=== PATIENT | female | born 1995 | race Caucasian/White ===

== ENCOUNTER 2019-10-05 02:45 | Inpatient (IN) ==
[2019-10-05] MEDS ORDERED: PENICILLIN G POTASSIUM 6 MU in DEXTROSE 5% 250 ML IV STA (03:31)
[2019-10-05] MEDS: LACTATED RINGER'S 1,000 ML IV PRN ×2 (03:48→08:04)
[2019-10-05 03:59] LABS: Hematocrit (blood only) 41.6 % (37-47); Hemoglobin 14.5 g/dL (12.0-16.0); Mean Corpuscular Hemoglobin 31.1 pg (25-34); Mean Corpuscular Volume 89.3 fL (80-100); Platelet Count 219 K/uL (130-400); RDW Coefficient of Variation 13.3 % (11.5-14.5); RDW Standard Deviation 43.2 fL (36.4-46.3); Red Blood Count 4.66 M/uL (4.2-5.4); White Blood Count 18.61 K/uL (4.8-10.8)
[2019-10-05 04:13] LABS: Mean Corpuscular Hgb Conc 34.9 g/dL (32-36)
--- NOTE | 2019-10-05 05:53 | History & Physical Report ---
Date of Service October 05, 2019 Assessment & Plan (1) : Hortencia is a 23 y/o female currently at 40-1/7 WGA with an BELÉN 10/04/19 as determined by LMP who is here with her for active labor and anticipated . - Demonstrating regular contractions beginning around midnight and SROM earlier this morning; category I tracing with good FHR variability. - Anticipate - GBS+ -- will proceed with intrapartum PCN - pt requesting an epidural at this time -- anesthesia to be consulted Blood Type: AB+ GBS: positive Rubella: immune History of Present Illness Primary Care Provider: Crystal Petty DO Hortencia is a 23 y/o female currently at 40-1/7 WGA with an BELÉN 10/04/19 as determined by LMP who is here for a labor assessment in the setting of regular contractions beginning around midnight last night. Her has been uncomplicated. Endorses regular contractions; + movement; notes fluid loss earlier this AM; denies bloody show External FHT and external uterine monitors used; Category I tracing; +FHT variability. Had regular appointments with OB. Labs: (02/18/20) Blood type: AB+ Antibody screen: neg H.5 (today) Hct: 41.6 (today) WBC: 18.6 (today) Plt: 219 (today) Rubella: immune VDRL/RPR: neg Gonorrhea: neg Chlamydia: neg HIV: neg HbSAg: neg GBS: positive Other screens: cff-DNA (03/19/19): Low Risk Allergies Allergy/AdvReac Type Severity Reaction Status Date / Time adhesive tape AdvReac Rash Verified 10/05/19 03:05 Home Medications Home Medications Medication Instructions Recorded Confirmed Type prenat.vits,rossana,par-wdms-ezlvk 1 tab PO DAILY 02/20/19 10/05/19 History cetirizine [Zyrtec] 10 mg PO DAILY 10/05/19 10/05/19 History Patient History Medical History Asthma Depression Encounter for anatomic survey Fibroadenoma Nausea and vomiting during Varicella vaccine Surgical History [place] teeth removed Family History Mother Endometriosis Family/Other Colitis Denies family history of Ovarian cancer Breast cancer Social History (Updated 02/20/19 @ 14:17 by Marlys Reynoso) Smoking Status: Never smoker Hx Alcohol Use: No Hx Substance Use: No Preferred Language: [place] Islander Communication Ability: Effective Beliefs That Will Affect Care: None marital status: marital status details: Michi Hsu (23) [phone] Current Living Situation: Spouse Current Living Situation Comment: house with current occupational status: employed 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 Endorses distress 2/2 regular contractions. Cardiac: Regular rate and rhythm, no murmurs/rubs/gallops. Respiratory: Clear to auscultation bilaterally a/p, no wheezes/rales/rhonchi. No increased work of breathing. Symmetrical chest rise. No respiratory distress. Pelvic: Dilation 6cm; Effacement 90%; Station 0 per Bang An RN Lower Extremities: No lower extremity edema or swelling. No deep calf pain. Marilyn's negative bilaterally Results & Data Vital Signs (Past 12 Hours) Vital Signs Temp Pulse Resp BP 10/05/19 05:11 68 133/96 10/05/19 05:10 36.9 C 20 10/05/19 04:02 71 142/97 H 10/05/19 04:00 18 10/05/19 03:27 77 148/94 H 10/05/19 03:17 75 139/93 10/05/19 03:06 36.8 C 18 10/05/19 03:01 36.8 C 67 18 139/93 Resident Activity Tracking Resident Involvement: Resident Care Provided Care Provided: Adult Hospital Medicine and OB Delivery
[2019-10-05] MEDS ORDERED: BUPIVACAINE 0.25% 30 ML VIAL ONE (06:55)
[2019-10-05] MEDS ORDERED: ePHEDrine sulfate 50 MG/ML AMP ONE (06:55)
[2019-10-05] MEDS ORDERED: fentaNYL 2MCG/ML ROPIV 1.25MG/ML 100 ML BAG EPI ONE (06:56)
[2019-10-05] MEDS ORDERED: fentaNYL citrate 100 MCG/2 ML VIAL ONE (06:56)
--- NOTE | 2019-10-05 07:16 | Anesthesiology Consultation ---
Date of Service October 05, 2019 Assessment & Plan (1) Encounter for pre-operative examination: Chart Review Chart Review: Acceptable Risk for Labor Epidural Consults Requested none ASA ASA2 Proposed Anesthesia Anesthesia Type: Labor Epidural Risk / Benefits Reviewed With: PT / POA / Parent / Guardian, Accepts Plan and Informed Consent Obtained History Height/Weight Height: 5 ft 6 in Weight: 87.09 kg Allergies Allergy/AdvReac Type Severity Reaction Status Date / Time adhesive tape AdvReac Rash Verified 10/05/19 03:05 Medications Home Medications Medication Instructions Recorded Confirmed Last Taken prenat.vits,rossana,eua-jyqj-qiwdl 1 tab PO DAILY 02/20/19 10/05/19 10/04/19 cetirizine [Zyrtec] 10 mg PO DAILY 10/05/19 10/05/19 10/04/19 Active Medications Generic Name Dose Route Start Last Admin Trade Name Freq PRN Reason Stop Dose Admin Lactated Ringer's 1,000 mls @ 125 mls/hr 10/05/19 03:31 10/05/19 04:18 Lr IV 10/07/19 03:30 125 mls/hr .Q8H PRN Infusion L&D Protocol Protocol Past Medical History Medical History Asthma Depression Encounter for anatomic survey Fibroadenoma Nausea and vomiting during Varicella vaccine Exercise / Class Metabolic Activity II 4-5 Yardwork/Stairs/Walk up hill Past Family History Family History Mother Endometriosis Family/Other Colitis Denies family history of Ovarian cancer Breast cancer Past Surgical History Surgical History [place] teeth removed Past Anesthesia History No Hx of Anesthesia Complications and No Family Hx of Anesthesia Complications History of PONV No Hx of PONV and No Hx of Motion Sickness Social History Smoking Status: Never smoker Hx Alcohol Use: No Hx Substance Use: No Physical Exam Vital Signs Last Vital Signs Temp 98.4 F 10/05/19 05:10 Pulse 72 10/05/19 07:13 Resp 20 10/05/19 06:00 BP 133/85 10/05/19 07:08 Pulse Ox 100 10/05/19 07:13 ENMT Mouth: no dentition abnormality Thyromental Distance: > or= 3.5 Finger Breadths Mallampati Class: II Neck normal visual inspection Respiratory normal respiratory effort Auscultation: lungs clear to auscultation bilaterally Cardiovascular Rate/Rhythm: regular rate and regular rhythm Testing Laboratory Results 10/05/19 03:42
[2019-10-05] MEDS ORDERED: fentaNYL 2MCG/ML ROPIV 1.25MG/ML 100 ML BAG EPI PRN (07:39)
[2019-10-05] MEDS ORDERED: ePHEDrine sulfate 50 MG/ML AMP IV PRN (07:39)
[2019-10-05] MEDS ORDERED: DiphenhydrAMINE HCL 50 MG/ML VIAL IV PRN (07:39)
[2019-10-05] MEDS ORDERED: NALOXONE HCL 1 MG in SODIUM CHLORIDE 0.9% 1000ML 1,000 ML IV PRN (07:39)
[2019-10-05] MEDS ORDERED: ONDANSETRON INJ 2 MG/ML 2 ML VIAL IV PRN (07:39)
[2019-10-05] MEDS ORDERED: NALOXONE HCL 0.4 MG/1 ML VIAL/CARP IV PRN (07:39)
[2019-10-05] MEDS: PENICILLIN G POTASSIUM 3 MU in DEXTROSE 5% 100 ML IV PRN ×3 (08:15→16:27)
[2019-10-05 08:25] LABS: Albumin Level 2.8 gm/dl (3.4-5.0); BUN Creatinine Ratio 6.3 (10-20); Calcium 8.5 mg/dl (8.5-10.1); Creatinine Clr Calc Pharmacy 104.6 ml/min; Est GFR (African American) 100.4; Est GFR (Non-African American) 86.6; Potassium 3.3 mmol/L (3.5-5.1)
[2019-10-05 08:28] LABS: Albumin Globulin Ratio 0.8 (0.9-2); Bilirubin,Total 0.5 mg/dl (0.2-1); Globulin 3.5 gm/dl (2.5-4.0); Total Protein 6.3 gm/dl (6.4-8.2)
--- NOTE | 2019-10-05 14:50 | Labor Progress Brief Note ---
Date of Service October 05, 2019 Subjective Patient began pushing with RN around 1:15p with complete cervical dilation. I checked on pushing effort at 2pm, patient still had a forebag of amniotic membranes, this was ruptured with amnihook for light meconium stained fluid. Recheck of pushing effort at 2:45, baby is now at 1+ station, good pushing effort however patient with significant right hip pain. New epidural bag started. FHT Cat 1, toco Q 2 Assessment & Plan Admission and Anticipated Discharge Date Admission Date: October 05, 2019 Results & Data ([facility]) Vital Signs (Past 12 Hours) Vital Signs Temp Pulse Resp BP Pulse Ox 10/05/19 14:43 74 97 10/05/19 14:38 72 81 L 10/05/19 14:34 68 135/83 10/05/19 14:33 74 98 10/05/19 14:28 80 96 10/05/19 14:23 73 99 10/05/19 14:18 64 97 10/05/19 14:17 66 132/81 10/05/19 14:13 73 98 10/05/19 14:08 63 97 10/05/19 14:04 65 130/75 10/05/19 14:03 66 95 10/05/19 14:00 37.1 C 20 10/05/19 13:58 88 91 10/05/19 13:53 78 99 10/05/19 13:48 68 127/85 95 10/05/19 13:47 71 93 10/05/19 13:43 82 97 10/05/19 13:39 68 90 10/05/19 13:38 69 98 10/05/19 13:33 64 98 10/05/19 13:32 69 132/58 L 10/05/19 13:30 36.6 C 18 10/05/19 13:28 84 98 10/05/19 13:23 66 99 10/05/19 13:19 75 124/74 10/05/19 13:18 86 99 10/05/19 13:17 96 H 92 10/05/19 13:13 71 99 10/05/19 13:08 80 100 10/05/19 13:03 73 99 10/05/19 13:02 69 133/79 10/05/19 12:58 76 100 10/05/19 12:53 69 100 10/05/19 12:48 77 136/81 99 10/05/19 12:43 72 99 10/05/19 12:38 69 98 10/05/19 12:33 65 99 10/05/19 12:32 63 138/83 10/05/19 12:28 69 100 10/05/19 12:23 85 100 10/05/19 12:18 76 100 10/05/19 12:17 73 142/86 H 10/05/19 12:13 75 100 10/05/19 12:08 80 99 10/05/19 12:03 73 100 10/05/19 12:02 70 145/91 H 10/05/19 11:58 68 100 10/05/19 11:53 71 97 10/05/19 11:48 66 100 10/05/19 11:47 75 138/87 10/05/19 11:43 68 100 10/05/19 11:38 74 100 10/05/19 11:33 70 100 10/05/19 11:32 65 138/79 10/05/19 11:28 70 100 10/05/19 11:23 70 99 10/05/19 11:18 74 134/75 99 10/05/19 11:13 70 98 10/05/19 11:08 68 98 10/05/19 11:03 70 128/78 98 10/05/19 10:58 90 98 10/05/19 10:53 75 99 10/05/19 10:48 75 99 10/05/19 10:47 73 128/87 10/05/19 10:43 74 99 10/05/19 10:39 36.6 C 18 10/05/19 10:38 85 98 10/05/19 10:33 74 99 10/05/19 10:32 73 125/84 10/05/19 10:28 76 99 10/05/19 10:23 78 99 10/05/19 10:18 75 99 10/05/19 10:16 77 130/81 10/05/19 10:13 79 99 10/05/19 10:08 76 98 10/05/19 10:03 75 124/77 100 10/05/19 09:58 75 100 10/05/19 09:53 77 98 10/05/19 09:48 71 100 10/05/19 09:47 77 130/87 10/05/19 09:43 79 99 10/05/19 09:38 69 99 10/05/19 09:33 79 99 10/05/19 09:28 67 99 10/05/19 09:23 72 100 10/05/19 09:18 75 100 10/05/19 09:17 74 126/77 10/05/19 09:13 76 100 10/05/19 09:08 72 100 10/05/19 09:03 78 116/83 97 10/05/19 09:00 36.7 C 18 10/05/19 08:58 69 100 10/05/19 08:53 68 100 10/05/19 08:48 71 129/76 100 10/05/19 08:43 71 100 10/05/19 08:38 69 100 10/05/19 08:33 67 133/76 100 10/05/19 08:28 71 100 10/05/19 08:23 79 100 10/05/19 08:18 63 100 10/05/19 08:17 67 128/72 10/05/19 08:13 71 99 10/05/19 08:08 63 100 10/05/19 08:03 65 98 10/05/19 08:02 66 128/74 10/05/19 07:58 66 99 10/05/19 07:53 69 99 10/05/19 07:48 69 98 10/05/19 07:46 71 126/70 10/05/19 07:44 67 128/69 10/05/19 07:43 73 99 10/05/19 07:42 70 127/67 10/05/19 07:40 73 125/66 10/05/19 07:38 72 122/63 100 10/05/19 07:34 76 136/76 10/05/19 07:33 86 100 10/05/19 07:29 73 143/90 H 10/05/19 07:28 75 100 10/05/19 07:24 83 148/89 H 10/05/19 07:23 80 79 L 10/05/19 07:18 79 100 10/05/19 07:17 83 91 10/05/19 07:13 72 100 10/05/19 07:08 86 133/85 100 10/05/19 07:02 75 137/86 10/05/19 07:00 36.6 C 22 10/05/19 06:00 20 10/05/19 05:11 68 133/96 10/05/19 05:10 36.9 C 20 10/05/19 04:02 71 142/97 H 10/05/19 04:00 18 10/05/19 03:27 77 148/94 H 10/05/19 03:17 75 139/93 10/05/19 03:06 36.8 C 18 10/05/19 03:01 36.8 C 67 18 139/93 Coding Level of Care Code None
[2019-10-05] MEDS: OXYTOCIN 30 UNITS/500 ML BAG IV PRN ×2 (16:04→18:45)
[2019-10-05] MEDS ORDERED: CARBOPROST TROMETHAMINE 250 MCG/ML AMPUL ONE (18:08)
[2019-10-05] MEDS ORDERED: METHYLERGONOVINE MALEATE 0.2 MG/ML AMP ONE (18:10)
--- NOTE | 2019-10-05 19:12 | Anesthesia Procedure Note ---
Date of Service October 05, 2019 Anesthesia Post Epidural Note Vital Signs Vital Signs: Temp Pulse Resp BP Pulse Ox 99.7 F H 65 18 160/93 H 100 10/05/19 17:00 10/05/19 19:05 10/05/19 17:00 10/05/19 19:05 10/05/19 18:34 Pain Intensity Right Abdomen: Pain Intensity: 3 Notes Mental Status: alert / awake / arousable and participated in evaluation Nausea / Vomiting: adequately controlled Pain: adequately controlled Airway Patency, RR, SpO2: stable & adequate BP & HR: stable & adequate Hydration State: stable & adequate Neuraxial Anesthesia: was administered and sensory block is resolving Anesthetic Complications: no major complications apparent and Pt Satisfied with anesthetic care Epidural: Removed without complications and With tip intact
--- NOTE | 2019-10-05 19:14 | Delivery Summary ---
Vaginal Delivery Summary Date of Service October 05, 2019 Vaginal Delivery Summary Vaginal Delivery Summary: Pre-delivery diagnoses: 23yo @ 40 1/7, spontaneous labor, GBS+ Post-delivery diagnoses: same, mild shoulder dystocia, 4th degree perineal laceration Procedure: vacuum-assisted vaginal delivery, repair of 4th degree perineal laceration Surgeon: Venice Underwood DO Complications: none Findings: Viable female . Apgars: 4/8. Weight pending, please see nursery records. Estimated blood loss: 400ml Description of delivery: The patient progressed to complete with epidural anesthesia. She then began to push. After approx 45min of pushing, I checked on her progress, and found forebag of amniotic membranes - AROM for meconium- stained fluid. She then pushed for 4 hours. She was continuing to make progress with station, slowly. She felt like she could no longer push at all, and begain to ask for help. I counseled her on use of vacuum, and she consented. Midline episiotomy cut. FHT Cat 1. The vacuum was placed at 3cm beyond the flexion point of head. Kiwi vacuum was used to help guide the head from 2+ station to 3+ station. 3 popoffs. Since the station improved, and Cat 1 FHT, allowed patient to continue pushing. She then spontaneously vaginally delivered a viable from the cephalic presentation. The head delivered in KULDIP position. Nuchal cord x 1 easily reduced. Mild shoulder dystocia, as anterior shoulder did not immediately delivery. The anterior shoulder delivered, and posterior shoulder was delayed. The anterior arm was delivered by sweeping medially along the body. This was followed by the posterior shoulder, followed by the body. The baby was placed on mother's abdomen and the cord was immediately doubly clamped and cut. The baby was immediately handed off to the waiting suggestion clerk. A segment was retained for cord gases. Cord blood was obtained. The placenta was delivered spontaneously intact with a 3-vessel cord. The uterus and vagina were swept of clots and debris. IV pitocin was given. The uterus was still atonic - the bladder was drained. Methergine and hemabate were given, and with uterine massage, the fundus became firm. The cervix, vagina, and perineum were inspected. A 4th degree perineal laceration was discovered. It was infused with 1% lidocaine for better anesthetic. This was closed in standard fashion. The rectal mucosa was reapproximated using 3-0 chromic in a running stitch, taking care to avoid sutures in the rectum itself. Then, the anal sphincter muscle was grasped with Allis clamps, and this was brought together with 4 x [id number] sutures of the 3-0 Chromic, incorporating the muscle sheath and the muscle itself. The remaining 2nd degree laceration was reapproximated in standard fashion with 3-0 Vicryl. Rectal exam at the conclusion of repair revealed fully reapproximated rectum, with no sutures in rectum. The anal sphincter muscle was well reapproximated. Excellent hemostasis was observed. The mother and baby are recovering in stable and good condition in the room. Sponge, needle and instrument counts were correct x 2. I discussed the above with patient and FOB in a post-delivery debrief. DO RANDY Suárez [facility] Vaginal Delivery Charge Vaginal Delivery Codes: 15023 global code for the antepartum, delivery, and post-
[2019-10-05] MEDS ORDERED: SUPERCREAM 0.870% 15 GM JAR EXT PRN (19:16)
[2019-10-05] MEDS ORDERED: ACETAMINOPHEN 325 MG TAB PO PRN (19:16)
[2019-10-05] MEDS ORDERED: bisacodyL 10 MG SUPP PR PRN (19:16)
[2019-10-05] MEDS ORDERED: METHYLERGONOVINE MALEATE 0.2 MG/ML AMP IM ONE (19:16)
[2019-10-05] MEDS ORDERED: DIPHTHERIA/TETANUS/PERTUSSIS 0.5 ML SYR/VIAL IM ONE (19:16)
[2019-10-05] MEDS ORDERED: BENZOCAINE 20% AER SPR 82.5 GM CAN EXT PRN (19:16)
[2019-10-05] MEDS ORDERED: CARBOPROST TROMETHAMINE 250 MCG/ML AMPUL IM ONE (19:16)
[2019-10-05] MEDS ORDERED: OXYTOCIN 30 UNITS/500 ML BAG IV PRN (19:16)
[2019-10-05] MEDS ORDERED: HYDROCORTISONE ACETATE 25 MG SUPP PR PRN (19:16)
[2019-10-05] MEDS ORDERED: IBUPROFEN 600 MG TAB PO ONE (19:19)
[2019-10-05 19:39] LABS: Base Excess Cord Arterial Bld -5.6 mEq/L (-9-1.8); Base Excess Cord Venous Blood -5.1 mEq/L (-7.7-1.9); CO2 Cord Arterial Blood 40 mmHg (39.1-73.5); Cord Venous Blood HCO3 19 mmol/L (18.4-26.8); Cord Venous Blood PCO2 33 mmHg (30.4-57.2); Cord Venous Blood PO2 30 mmHg (14.1-43.3); Cord Venous Blood pH 7.38 (7.20-7.44); HCO3 Cord Arterial Blood 20 mmol/L (19.7-28.5); Oxygen Sat Cord Arterial Blood < 60.0 % (<60); PO2 Cord Arterial Blood 23 mmHg (4.1-31.7); pH Cord Arterial Blood 7.32 (7.1-7.38)
[2019-10-05] MEDS: OXYCODONE/ACETAMINOPHEN 5mg/325mg TAB PO PRN (20:52)
[2019-10-05] MEDS ORDERED: DOCUSATE SODIUM 100 MG CAP PO SCH (21:00)
[2019-10-05] MEDS: IBUPROFEN 600 MG TAB PO PRN (23:10)
[2019-10-06] MEDS: OXYCODONE/ACETAMINOPHEN 5mg/325mg TAB PO PRN ×3 (01:34→09:28)
[2019-10-06 02:02] VITALS: O2SAT 97
[2019-10-06] MEDS: IBUPROFEN 600 MG TAB PO PRN ×4 (05:54→20:20)
--- NOTE | 2019-10-06 06:47 | Obstetrical Progress Note ---
Date of Service <Juliano Ruiz MD - Last Filed: 10/06/19 07:45> October 06, 2019 Assessment & Plan <Juliano Ruiz MD - Last Filed: 10/06/19 07:45> (1) Vacuum-assisted vaginal delivery: Hortencia is a 23 y/o female who is now PPD #1 following VAVD at 40-1/7 weeks. Her delivery is also significant for a Grade IV vaginal laceration - Feels well today. Eating well, voiding well, ambulating well. - Pain well controlled with ibuprofen 600mg Q4H PRN - Regular stool softeners (scheduled) in setting of grade IV lac - Routine PPD care -- OOB, ambulation, diet as tolerated Subjective <Juliano Ruiz MD - Last Filed: 10/06/19 07:45> Hortencia is a 23 y/o female who is now PPD #1 following VAVD at 40-1/7 weeks. Reports feeling well overall this morning. Some abdominal cramping & 3/10 pain well managed on analgesics. Voiding without difficulty. Tolerating meals overnight and able to ambulate some. Is passing gas but not yet bowel movements. Some persistent lochia with some improvement this morning. Breast feeding without difficulty Review of Systems Denies fever, chills, sweats Denies shortness of breath, difficulty breathing, chest pain, palpitations, chest pressure. Denies breast pain. Denies dysuria. Denies headache. Physical Exam <Juliano Ruiz MD - Last Filed: 10/06/19 07:45> General: Alert, oriented. No acute distress. Cardiac: Regular rate and rhythm, no murmurs/rubs/gallops. Respiratory: Clear to auscultation bilaterally a/p, no wheezes/rales/rhonchi. No increased work of breathing. Symmetrical chest rise. No respiratory distress. Abdomen: Soft, nontender, nondistended. Bowel sounds present. Uterus: Uterine fundus firm, palpable at level of umbilicus. Lower Extremities: No lower extremity edema or swelling. No deep calf pain. Marilyn's negative bilaterally. Results & Data <Juliano Ruiz MD - Last Filed: 10/06/19 07:45> Vital Signs (Past 12 Hours) Vital Signs Temp Pulse Pulse Resp BP BP Pulse Ox 10/06/19 03:05 36.4 C L 85 16 134/87 97 10/06/19 01:35 36.6 C 83 16 121/78 97 10/05/19 22:15 36.9 C 80 16 137/86 96 10/05/19 20:47 36.7 C 63 18 142/86 H 10/05/19 20:32 66 18 141/85 H 10/05/19 20:17 60 16 157/95 H 10/05/19 20:10 60 16 157/87 H 10/05/19 19:42 63 18 145/91 H 10/05/19 19:17 57 L 16 172/97 H 10/05/19 19:05 36.7 C 65 16 160/93 H 10/05/19 19:02 62 16 173/102 H 10/05/19 18:47 75 16 151/92 H 10/05/19 18:45 37.2 C 18 <Venice Underwood DO - Last Filed: 10/06/19 08:33> Co-Signing Physician Notes Resident Physician Supervision Note: I was present with Dr. Ruiz during the history and exam. I discussed the case with the resident and agree with the findings and plan as documented in the note. Any exceptions or clarifications are listed here: PPD#1 doing well. Continue stool softeners. Documented By: Venice Underwood DO Resident Activity Tracking <Juliano Ruiz MD - Last Filed: 10/06/19 07:45> Resident Involvement: Resident Care Provided Care Provided: Adult Hospital Medicine and OB Delivery
[2019-10-06 07:36] LABS: Hematocrit (blood only) 33.8 % (37-47); Hemoglobin 11.6 g/dL (12.0-16.0)
[2019-10-06] MEDS ORDERED: NON-FORMULARY MEDICATION (Prenat.Vits,Cal,Min-Iron-Folic 1 TAB) PO SCH (09:00)
[2019-10-06] MEDS: CETIRIZINE HCL 10 MG TABLET PO SCH (09:24)
[2019-10-06] MEDS: PRENATAL VITAMIN 1 TAB PO SCH (09:25)
[2019-10-06] MEDS: DOCUSATE SODIUM 100 MG CAP PO SCH ×2 (09:25→20:20)
[2019-10-06] MEDS ORDERED: bisacodyL 5 MG TABEC PO SCH (20:00)
[2019-10-07] MEDS: IBUPROFEN 600 MG TAB PO PRN ×4 (00:47→13:21)
--- NOTE | 2019-10-07 05:37 | Obstetrical Progress Note ---
Date of Service <Juliano Ruiz MD - Last Filed: 10/07/19 06:40> October 07, 2019 Assessment & Plan <Juliano Ruiz MD - Last Filed: 10/07/19 06:40> (1) Vacuum-assisted vaginal delivery: Hortencia is a 23 y/o female who is now PPD #2 following VAVD at 40-1/7 weeks. Her delivery is also significant for a Grade IV vaginal laceration - Feels well today. Eating well, voiding well, ambulating well. - Pain well controlled with ibuprofen 600mg Q4H PRN - Regular stool softeners (scheduled) in setting of grade IV lac - Routine PPD care -- OOB, ambulation, diet as tolerated - anticipate d/c today pending peds clearance Subjective <Juliano Ruiz MD - Last Filed: 10/07/19 06:40> Hortencia is a 23 y/o female who is now PPD #2 following VAVD at 40-1/7 weeks. Reports feeling well overall this morning. Some abdominal cramping and perineal discomfort in setting of grade IV vaginal laceration; reports pain around her bottom when moving but feels that it is well managed on NSAID analgesics. Voiding without difficulty. Tolerating meals overnight and able to ambulate some. Continues to pass gas but not yet bowel movement; on regular and scheduled bowel prep. Some persistent lochia with some improvement this morning. Breast feeding without difficulty Review of Systems Denies fever, chills, sweats Denies shortness of breath, difficulty breathing, chest pain, palpitations, chest pressure. Denies breast pain. Denies dysuria. Denies headache. Physical Exam <Juliano Ruiz MD - Last Filed: 10/07/19 06:40> General: Alert, oriented. No acute distress. Cardiac: Regular rate and rhythm, no murmurs/rubs/gallops. Respiratory: Clear to auscultation bilaterally a/p, no wheezes/rales/rhonchi. No increased work of breathing. Symmetrical chest rise. No respiratory distress. Abdomen: Soft, nontender, nondistended. Bowel sounds present. Uterus: Uterine fundus firm, palpable 1 cm below umbilicus. Lower Extremities: No lower extremity edema or swelling. No deep calf pain. Marilyn's negative bilaterally. Results & Data <Juliano Ruiz MD - Last Filed: 10/07/19 06:40> Vital Signs (Past 12 Hours) Vital Signs Temp Pulse Resp BP Pulse Ox 10/06/19 23:30 36.7 C 92 H 14 123/30 L 97 10/06/19 19:25 36.8 C 99 H 16 125/79 97 <Nadine Cherry MD, FACOG - Last Filed: 10/07/19 07:26> Co-Signing Physician Notes Resident Physician Supervision Note: I interviewed and examined the patient. Discussed with Dr. Ruiz and agree with findings and plan as documented in the note. Any exceptions or clarifications are listed here: [None] Documented By: Nadine Cherry MD, FACOG Resident Activity Tracking <Juliano Ruiz MD - Last Filed: 10/07/19 06:40> Resident Involvement: Resident Care Provided Care Provided: Adult Hospital Medicine and OB Delivery
[2019-10-07] MEDS: PRENATAL VITAMIN 1 TAB PO SCH (08:32)
[2019-10-07] MEDS: CETIRIZINE HCL 10 MG TABLET PO SCH (08:32)
[2019-10-07] MEDS: DOCUSATE SODIUM 100 MG CAP PO SCH (08:33)
[2019-10-07 10:11] VITALS: BP 144/69; PULSE 83; TEMP 97.3
== END 2019-10-07 18:06 | disposition home or self-care (01) | DRG 768 ==
LOC: OPB 02:45 → 4S1 02:48 → 4S2 21:55

== ENCOUNTER 2021-06-12 05:45 | Inpatient (IN) ==
[2021-06-12] MEDS ORDERED: LACTATED RINGER'S 1,000 ML IV PRN (06:31)
[2021-06-12] MEDS ORDERED: OXYTOCIN 30 UNITS/500 ML BAG IV PRN ×2 (06:31→12:41)
[2021-06-12] MEDS ORDERED: PENICILLIN G POTASSIUM 6 MU in DEXTROSE 5% 250 ML IV ONE (06:45)
[2021-06-12 06:57] LABS: Hematocrit (blood only) 42.5 % (37-47); Mean Corpuscular Hemoglobin 31.4 pg (25-34); Mean Corpuscular Hgb Conc 35.3 g/dL (32-36); Mean Corpuscular Volume 88.9 fL (80-100); Mean Platelet Volume 10.1 fL (7.4-10.4); Platelet Count 217 K/uL (130-400); RDW Coefficient of Variation 13.1 % (11.5-14.5); RDW Standard Deviation 42.3 fL (36.4-46.3); Red Blood Count 4.78 M/uL (4.2-5.4)
--- NOTE | 2021-06-12 07:33 | History & Physical Report ---
Date of Service June 12, 2021 Assessment & Plan (1) Active labor at term: (2) Group beta Strep positive: Plan: pt has been admitted. gbs pos, plan pcn. fhts categ 1. Admission and Anticipated Discharge Date Admission Date: June 12, 2021 History of Present Illness Chief Complaint: leaking since 330 am today Primary Care Provider: Crystal Petty, DO 25yo at 37+wks ega presents to L&D with leaking fluid, clear and intermittent contractions. On arrival gross srom and regular ctx with cx 4cm. GBS pos. No bleeding. +FM. PNC uncomplicated PNL rh pos, ri, gbs neg OBH: x 1 Allergies Allergy/AdvReac Type Severity Reaction Status Date / Time adhesive tape AdvReac Mild Rash Verified 06/12/21 06:38 Home Medications Medication Instructions Recorded Confirmed Type prenat.vits,rossana,hnv-mlwl-mfgdc 1 tab PO DAILY 02/20/19 06/09/21 History cetirizine 10 mg capsule (Zyrtec) 10 mg PO DAILY 10/05/19 06/09/21 History diphenhydramine HCl 50 mg capsule 50 mg PO HS PRN cap 05/05/21 06/09/21 History ([facility]) Patient History Medical History (Updated 06/12/21 @ 07:42 by Atiya Gaxiola MD, FACOG) Asthma Depression Encounter for anatomic survey Fibroadenoma Nausea and vomiting during Varicella vaccine Surgical History [place] teeth removed Family History Mother Endometriosis Family/Other Colitis Denies family history of Ovarian cancer Breast cancer Social History (Updated 11/15/20 @ 09:53 by Barbra Garibay) Smoking Status: Never smoker Hx Alcohol Use: No Hx Substance Use: No Preferred Language: Burkin[place] Communication Ability: Effective Beliefs That Will Affect Care: None marital status: marital status details: Michi Hsu (24) [phone] Current Living Situation: Spouse Current Living Situation Comment: lives with spouse and child, 1 dog, 1 cat, spouse to change litter. 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 Feels Safe at Home: Yes Assistive Devices: None Review of Systems as per Subjective / HPI Physical Exam Constitutional: WD/WN, vitals as above Respiratory: normal respiratory effort, lungs clear to auscultation Cardiovascular: Rate/Rhythm: regular rate and regular rhythm Gastrointestinal (Abdomen): soft gravid nt efw 6-7# Musculoskeletal: no edema nontender calves Neurologic: grossly normal Psychiatric: A+Ox3, euthymic affect Genitourinary: Manual OB Exam: + cervical dilation 4 cm OB Exam Monitor Tracing: + external FHT monitor used, + external uterine monitor used (q3), + category I and + normal FHT variability Results & Data ([facility]) Vital Signs (Past 12 Hours) Vital Signs Temp Pulse Resp BP 06/12/21 07:29 85 120/75 06/12/21 06:09 104 H 115/77 06/12/21 06:08 97.7 F 18 Code Status & VTE Plan VTE Prophylaxis Plan VTE Prophylaxis will be ordered: No Coding Level of Care Code None Diagnoses Active labor at term Group beta Strep positive B95.1
--- NOTE | 2021-06-12 08:57 | Labor Progress Brief Note ---
Date of Service June 12, 2021 Subjective Patient breathing through contractions. Not ready for epidural at this point. Assessment & Plan (1) Active labor at term: Plan: srom at 3:30 am, now 5 hours since rom. discussed options including expectant management and starting pitocin. She declines intervention at this point. Did discuss if not making some change soon, would recommend pit as gbs +. She agrees. epidural on demand. fetus category one. Admission and Anticipated Discharge Date Admission Date: June 12, 2021 Physical Exam Physical Exam: cx--4/80/-2 toco--q2-3min efm--150s wtih mod variability, accels present, no decels Results & Data ([facility]) Vital Signs (Past 12 Hours) Vital Signs Temp Pulse Resp BP 06/12/21 07:29 85 120/75 06/12/21 07:14 36.4 C L 18 06/12/21 06:09 104 H 115/77 06/12/21 06:08 36.5 C 18 Coding Level of Care Code None Diagnoses Active labor at term
--- NOTE | 2021-06-12 11:07 | Labor Progress Brief Note ---
Date of Service June 12, 2021 Subjective more uncomfortable with contractions Assessment & Plan (1) Active labor at term: Plan: making progress. fetus category two. continue expectant management as now making progress. declines epidural at this point, can get at any point if desires. Admission and Anticipated Discharge Date Admission Date: June 12, 2021 Physical Exam Physical Exam: cx--5-6/100/-2 arom of forebag, clear toco--q2-4min efm--150s with mod variability, accels to 180s, no decels Results & Data ([facility]) Vital Signs (Past 12 Hours) Vital Signs Temp Pulse Resp BP 06/12/21 09:53 36.9 C 06/12/21 09:02 36.6 C 06/12/21 07:29 85 120/75 06/12/21 07:14 36.4 C L 18 06/12/21 06:09 104 H 115/77 06/12/21 06:08 36.5 C 18 Coding Level of Care Code None Diagnoses Active labor at term
[2021-06-12] MEDS ORDERED: SODIUM CHLORIDE 0.9% INJ 10 ML VIAL ONE (11:51)
[2021-06-12] MEDS ORDERED: fentaNYL citrate 100 MCG/2 ML VIAL ONE (11:51)
[2021-06-12] MEDS ORDERED: ePHEDrine sulfate 50 MG/ML AMP ONE (11:51)
[2021-06-12] MEDS ORDERED: BUPIVACAINE 0.25% 30 ML VIAL ONE (11:51)
[2021-06-12] MEDS ORDERED: fentaNYL 2MCG/ML ROPIVACAINE 1.25MG/ML 100 ML BAG EPI ONE (11:52)
[2021-06-12] MEDS ORDERED: LIDOCAINE 1% LOCAL 20 ML VIAL ONE (12:27)
[2021-06-12] MEDS ORDERED: BENZOCAINE 20% AER SPR 82.5 GM CAN EXT PRN (12:41)
[2021-06-12] MEDS ORDERED: HYDROCORTISONE ACETATE 25 MG SUPP PR PRN (12:41)
[2021-06-12] MEDS ORDERED: ACETAMINOPHEN 325 MG TAB PO PRN (12:41)
[2021-06-12] MEDS ORDERED: bisacodyL 10 MG SUPP PR PRN (12:41)
[2021-06-12] MEDS ORDERED: DIPHTHERIA/TETANUS/PERTUSSIS 0.5 ML SYR/VIAL IM ONE (12:41)
[2021-06-12] MEDS ORDERED: oxyCODONE/ACETAMINOPHEN 5mg/325mg TAB PO PRN (12:41)
--- NOTE | 2021-06-12 12:42 | Communication Note ---
Date of Service: June 12, 2021 Saw patient in consultation for labor epidural. She was examined and consented. She could not sufficiently lay for epidural and felt a strong urge to push. The procedure was abandoned and she went on to deliver without epidural anesthesia.
--- NOTE | 2021-06-12 12:46 | Delivery Summary ---
Vaginal Delivery Summary Date of Service June 12, 2021 Vaginal Delivery Summary and 2nd Degree LAC Pre-operative Diagnosis: at 37 weeks srom hx of 4th degree laceration hx of shoulder dystocia gbs positive Post-operative Diagnosis: same Procedure: pcn prophylaxis repair of second degree laceration EBL: 350cc Anesthesia: local infiltration of lidocaine Procedure: Patient admitted with srom and early active labor. She was managed expectantly and progressed spontaneously. She requested epidural and sat up for such and noted need to push. Was found to be 9cm. Laid on side for spinal and began pushing. Flipped to semifowlers. The patient pushed for 4 contractions to deliver a viable male in iván position. The nose and mouth were bulb suctioned on the perineum, a loose nuchal cord was reduced and the rest of the was then delivered without difficulty. The baby was vigorous. The nose and mouth were again bulb suctioned and the infant was placed in the maternal abdomen for drying and attention. Cord was clamped and cut at one minute of life. Cord blood and segment obtained. Placenta delivered spontaneous, intact with a three vessel cord. Cervix/sulci/rectum were intact. A second degree perineal laceration was repaired in the normal standard fashion. Hemostasis obtained with dilute pitocin and fundal massage. Apgars were 8/9. Mother and baby doing well at the end of the delivery. [facility] [place] Vaginal Delivery Charge Delivery Type Details: and 2nd Degree LAC
[2021-06-12] MEDS: IBUPROFEN 600 MG TAB PO PRN ×4 (13:44→23:39)
[2021-06-12] MEDS ORDERED: PENICILLIN G POTASSIUM 3 MU in DEXTROSE 5% 100 ML IV PRN (14:45)
[2021-06-12] MEDS: DOCUSATE SODIUM 100 MG CAP PO SCH (20:05)
[2021-06-13] MEDS: IBUPROFEN 600 MG TAB PO PRN ×2 (03:34→08:32)
[2021-06-13 06:47] LABS: Hematocrit (blood only) 38.8 % (37-47); Hemoglobin 13.4 g/dL (12.0-16.0)
--- NOTE | 2021-06-13 06:52 | Obstetrical Progress Note ---
Date of Service <Judy Anderson - Last Filed: 06/13/21 07:24> June 13, 2021 Assessment & Plan <Judy Anderson - Last Filed: 06/13/21 07:24> (1) Encounter for care and examination after delivery: 25 yo post op day1 from , doing well. -Continue routine post care. -vital signs reviewed and WNL (Tmax 37.3 ) -Blood Type AB+, GBS+ recieved penicillin, Rubella Immune -Encourage ambulation, monitor and control pain with Motrin, tylenol PRN, resume regular diet, monitor lochia -encourage breast feeding -hemoglobin 13.4 Day #:: 1 <Mari Deluca MD, FACOG - Last Filed: 06/13/21 07:46> (1) Encounter for care and examination after delivery: Subjective <Judy Anderson - Last Filed: 06/13/21 07:24> Ambulation: ambulating normally Voiding: no voiding problems Passing Gas:: Yes Diet Tolerance:: regular diet Lochia:: Small Feeding Type:: breast feeding Current Pain Level(1-10): 2 Review of Systems Negative fever chills Negative headache dizziness Negative chest pain palpitations SOB Negative nausea vomitting diarrhea constipation Negative numbness tingling rash swelling Physical Exam <Judy Anedrson - Last Filed: 06/13/21 07:24> General: Alert, oriented. No acute distress. Cardiac: Regular rate and rhythm, no murmurs/rubs/gallops. Respiratory: Clear to auscultation bilaterally a/p, no wheezes/rales/rhonchi. No increased work of breathing. Symmetrical chest rise. No respiratory distress. Abdomen: Soft, nontender, nondistended. Bowel sounds present. Uterus: Uterine fundus firm, palpable 2 cm below umbilicus. Lower Extremities: No lower extremity edema or swelling. No deep calf pain. Marilyn's negative bilaterally.. Results & Data ([facility]) <Judy Anderson - Last Filed: 06/13/21 07:24> Vital Signs (Past 12 Hours) Vital Signs Temp Pulse Resp BP Pulse Ox 06/13/21 03:35 36.6 C 69 18 110/73 06/12/21 23:40 36.5 C 75 18 106/70 06/12/21 19:50 36.5 C 82 18 104/68 97 <Mari Deluca MD, FACOG - Last Filed: 06/13/21 07:46> Co-Signing Physician Notes Resident Physician Supervision Note: I interviewed and examined the patient. Discussed with Dr. Anderson and agree with findings and plan as documented in the note. Any exceptions or clarifications are listed here: Doing well. Routine care. May be interested in d/c this evening. instructions given. Documented By: Mari Deluca MD, FACOG Resident Activity Tracking <Judy Anderson DO - Last Filed: 06/13/21 07:24> Resident Involvement: Resident Care Provided Care Provided: Adult Hospital Medicine and OB Delivery
[2021-06-13] MEDS ORDERED: PRENATAL VITAMIN 1 TAB PO SCH (08:00)
[2021-06-13] MEDS: DOCUSATE SODIUM 100 MG CAP PO SCH (08:32)
[2021-06-13] MEDS ORDERED: bisacodyL 5 MG TABEC PO SCH (20:00)
== END 2021-06-13 16:20 | disposition home or self-care (01) | DRG 807 ==
LOC: OPB 05:45 → 4S1 05:49 → 4S3 15:47 → 4E2 15:50

== ENCOUNTER 2024-12-19 21:38 | Inpatient (IN) ==
[2024-12-19] MEDS ORDERED: ACETAMINOPHEN 500 MG TAB PO PRN (22:05)
[2024-12-19] MEDS ORDERED: CALCIUM CARBONATE 500 MG CHEWABLE TAB PO PRN (22:05)
[2024-12-19] MEDS ORDERED: LIDOCAINE 1% LOCAL 20 ML VIAL INFIL PRN (22:05)
--- NOTE | 2024-12-19 22:18 | History & Physical Report ---
Date of Service December 19, 2024 Assessment & Plan (1) Active labor at term: Plan: 29-year-old -0-0-2 at 38 weeks and 4 days for gestational presenting in active labor, requesting epidural for pain, Vital signs stable afebrile, heart rate reassuring, GBS positive, Plan to admit, monitor, labs, penicillin for GBS and epidural for pain, Continue to monitor closely. (2) Group beta Strep positive: (3) Gestational diabetes: Admission and Anticipated Discharge Date Admission Date: December 19, 2024 History of Present Illness Chief Complaint: Contractions Primary Care Provider: Charline Conroy DO patient is a 29-year-old -0-0-2 at 38 weeks and 4 days of gestation who has had irregular contractions, back pain all day today and then contractions started around 8 PM. They feel like constant pain. they got more painful on the way here. She denies leakage of fluid or vaginal bleeding. She reports good movements. She is asking for epidural. She was here on December 11 when she was 37+ weeks with irregular co ntractions. Her cervix has been 3 cm dilated and thick, she received IV fluid hydration and pain medication, slept and rested. despite multiple hours have passed her cervix has not changed. She was sent home. Her contractions have stopped. She called this morning with irregular back pain and discomfort. I offered her come in for a check but patient was not feeling contractions and she wanted to wait. She called me back again around 8:50 PM and said her contractions became constant and painful for the last 40 minutes. And I recommended her to come in. Her has been complicated by, 1. GDM A1, 2. GBS positive, 3. LGA, EFW per MFM ultrasound on November 30, 3,295 g 38w 2d 92% 4. depression, on Prozac and stable Allergies Allergy/AdvReac Type Severity Reaction Status Date / Time adhesive tape AdvReac Mild Rash Verified 11/12/24 14:17 Home Medications Medication Instructions Recorded Confirmed Type prenat.vits,rossana,[id number] 1 tab PO DAILY 05/20/24 12/19/24 History fluoxetine 10 mg capsule 20 mg PO DAILY 08/13/24 12/19/24 History acetone (urine) test (Ketone Urine #50 ea 10/15/24 11/12/24 Rx Test strips) blood sugar diagnostic (Accu-Chek #150 ea 10/15/24 11/12/24 Rx Guide test strips) blood-glucose meter (Accu-Chek #1 ea 10/15/24 11/12/24 Rx Guide Glucose Meter) lancets (Accu-Chek Softclix #100 ea 10/15/24 11/12/24 Rx Lancets) Patient History Medical History (Updated 12/19/24 @ 22:20 by Aparna Vitale MD) Encounter for care and examination after delivery Group beta Strep positive Active labor at term Nausea and vomiting during Fibroadenoma Asthma Varicella vaccine Depression Encounter for anatomic survey Surgical History [place] teeth removed Family History Mother Endometriosis Family/Other Colitis Denies family history of Ovarian cancer Breast cancer Social History Smoking Status: Never smoker Do You Dip or Chew Tobacco: No; Hx Alcohol Use: No Hx Substance Use: No Preferred Language: Mohawk Communication Ability: Effective Railway 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 History no history of STDs, no history of chlamydia, gonorrhea, herpes Review of Systems as per Subjective / HPI Physical Exam Constitutional: WD/WN, vitals as above well developed, well nourished and + acute distress Gastrointestinal (Abdomen): normal bowel sounds, soft, nontender, no hepatosplenomegaly ( gravid) Genitourinary: normal external appearance OB Exam Abdomen: + vertex Manual OB Exam: + cervical dilation 7 cm (7-8), + cervical effacement 80% and + station 0 OB Exam Monitor Tracing: + external uterine monitor used and + category I Results & Data Vital Signs (Past 12 Hours) Vital Signs Temp Pulse Resp BP 12/19/24 21:55 36.7 C 18 12/19/24 21:48 93 H 131/81 (3) Gestational diabetes Gestational diabetes mellitus control: diet-controlled Trimester: third trimester Qualified Code(s): O24.410 - Gestational diabetes mellitus in , diet controlled
[2024-12-19] MEDS: LACTATED RINGER'S 1,000 ML IV PRN (22:31)
[2024-12-19] MEDS: PENICILLIN GK 6 MU in DEXTROSE 5% 250 ML IV STA (22:31)
[2024-12-19] MEDS ORDERED: diphenhydrAMINE 50 MG/ML VIAL IV PRN (22:37)
[2024-12-19] MEDS ORDERED: ROPIVACAINE 0.5% PF 5 MG/ML 20 ML VIAL EPI PRN (22:37)
[2024-12-19] MEDS ORDERED: BUPIVACAINE 0.25% PF 30 ML VIAL EPI PRN (22:37)
[2024-12-19] MEDS ORDERED: fentANYL 2 MCG/ML BUPIVacaine 0.125%-NSS 100ML BAG EPI PRN (22:37)
[2024-12-19] MEDS ORDERED: NALOXONE HCL 1 MG in SODIUM CHLORIDE 0.9% 1,000 ML IV PRN (22:37)
[2024-12-19] MEDS ORDERED: SODIUM CHLORIDE 0.9% PF INJ 10 ML VIAL EPI PRN (22:37)
[2024-12-19] MEDS ORDERED: ONDANSETRON INJ 2 MG/ML 2 ML VIAL IV PRN (22:37)
[2024-12-19] MEDS ORDERED: LIDOCAINE 2% MPF LOCAL 5 ML VIAL EPI PRN (22:37)
[2024-12-19] MEDS ORDERED: NALOXONE HCL 0.4 MG/1 ML VIAL/CARP IV PRN (22:37)
[2024-12-19] MEDS ORDERED: NALBUPHINE HCL INJ 10 MG/ML AMP IV PRN (22:37)
[2024-12-19 22:39] LABS: Hematocrit (blood only) 40.2 % (37.0-47.0); Hemoglobin 13.8 g/dl (12.0-16.0); Mean Corpuscular Hemoglobin 29.9 pg (25.0-34.0); Mean Corpuscular Volume 87.0 fL (80.0-100.0); Platelet Count 219 K/uL (130-400); RDW Standard Deviation 41.1 fL (36.4-46.3); Red Blood Count 4.62 M/uL (4.20-5.40); White Blood Count 14.43 K/ul (4.8-10.8)
[2024-12-19] MEDS: BUPIVACAINE 0.25% PF 30 ML VIAL EPI STA (22:53)
--- NOTE | 2024-12-19 22:55 | Anesthesiology Consultation ---
Date of Service December 19, 2024 Assessment & Plan (1) Encounter for pre-operative examination: Chart Review Chart Review: Patient NOT seen in Pre Admission Testing and Acceptable Risk for Labor Epidural Consults Requested none History Height/Weight Height: 5 ft 6 in Weight: 80.739 kg Allergies Allergy/AdvReac Type Severity Reaction Status Date / Time adhesive tape AdvReac Mild Rash Verified 11/12/24 14:17 Medications Home Medications Medication Instructions Recorded Confirmed Last Taken prenat.vits,rossana,[id number] 1 tab PO DAILY 05/20/24 12/19/24 12/19/24 fluoxetine 10 mg capsule 20 mg PO DAILY 08/13/24 12/19/24 12/19/24 acetone (urine) test (Ketone Urine #50 ea 10/15/24 11/12/24 Unknown Test strips) blood sugar diagnostic (Accu-Chek #150 ea 10/15/24 11/12/24 Unknown Guide test strips) blood-glucose meter (Accu-Chek #1 ea 10/15/24 11/12/24 Unknown Guide Glucose Meter) lancets (Accu-Chek Softclix #100 ea 10/15/24 11/12/24 Unknown Lancets) Active Medications Generic Name Dose Route Start Last Admin Trade Name Freq PRN Reason Stop Dose Admin Lactated Ringer's 1,000 mls @ 125 mls/hr 12/19/24 22:05 12/19/24 22:31 Lr IV 12/21/24 22:04 999 mls/hr .Q8H PRN Administration L&D Protocol Protocol Penicillin G Potassium 6 mu/ 262 mls @ 250 mls/hr 12/19/24 22:05 12/19/24 22:31 Dextrose IV 12/19/24 23:07 250 mls/hr NOW STA Administration NPO Date Last Intake of Fluids: 12/19/24 Time Last Intake of Fluids: 22:00 Date Last Intake of Solids: 12/19/24 Time Last Intake of Solids: 20:01 Past Medical History Medical History Encounter for care and examination after delivery Group beta Strep positive Active labor at term Nausea and vomiting during Fibroadenoma Asthma Varicella vaccine Depression Encounter for anatomic survey Exercise / Class Metabolic Activity II 4-5 Yardwork/Stairs/Walk up hill Past Family History Family History Mother Endometriosis Family/Other Colitis Denies family history of Ovarian cancer Breast cancer Past Surgical History Surgical History [place] teeth removed Past Anesthesia History No Hx of Anesthesia Complications and No Family Hx of Anesthesia Complications Social History Smoking Status: Never smoker Do You Dip or Chew Tobacco: No Hx Alcohol Use: No Hx Substance Use: No substance use type: does not use Physical Exam Vital Signs Last Vital Signs Temp 36.7 C 12/19/24 21:55 Pulse 80 12/19/24 22:52 Resp 18 12/19/24 21:55 BP 125/68 12/19/24 22:52 Pulse Ox 92 12/19/24 22:49 Testing Laboratory Results 12/19/24 22:31
[2024-12-20] MEDS: OXYTOCIN 30 UNITS/NSS 30 UNITS/500 ML BAG IV PRN
[2024-12-20] MEDS ORDERED: HYDROCORTISONE ACETATE 25 MG SUPP PR PRN (00:21)
[2024-12-20] MEDS ORDERED: BENZOCAINE 20% SPRY 85 APPLN/85 GM CAN EXT PRN (00:21)
[2024-12-20] MEDS ORDERED: OXYTOCIN 30 UNITS/NSS 30 UNITS/500 ML BAG IV PRN (00:21)
--- NOTE | 2024-12-20 00:26 | Delivery Summary ---
Vaginal Delivery Summary Date of Service December 20, 2024 Vaginal Delivery Summary patient had spinal by anesthesiologist Dr. Drake for pain relief. SROM at 22:59 PM, light meconium. first dose of penicillin which was 6 milliunit was completed and patient was found to be fully dilated, felt pressure and desired to push. She pushed for about 20 min and delivered the head and then shoulders with minimal traction at 23:55 PM on December 19 The baby was handed off to the mother. The cord was clampedx2 and cut at 1 minute. The vagina and perineum were checked and found to have a small, second-degree degree perineal laceration. The vaginal mucosa was repaired with 2/0 vicryl and skin on subcuticular fashion. The placenta was delivered spontaneously as intact and complete. The uterus was explored and found to be empty. QBL was 225 ml. The fundus was firm. The baby was a viable male , Apgars 8/8, the weight is pending The mother and the baby tolerated the procedure well. No complications happened and I was present during whole procedure.
[2024-12-20] MEDS: OXYTOCIN 20 UNITS/LR 1,002 ML IV SCH (00:40)
[2024-12-20] MEDS: LIDOCAINE 2% LOCAL 20 ML VIAL ONE (00:46)
[2024-12-20] MEDS: BUPIVACAINE 0.25% PF 30 ML VIAL ONE (00:47)
[2024-12-20] MEDS: SODIUM CHLORIDE 0.9% PF INJ 10 ML VIAL ONE (00:47)
[2024-12-20] MEDS: fentANYL 2 MCG/ML BUPIVacaine 0.125%-NSS 100ML BAG ONE (00:47)
[2024-12-20] MEDS: LIDOCAINE 2%/EPINEPHRINE 1:200,000 20 ML PF EPI STA (00:47)
[2024-12-20] MEDS: LIDOCAINE 2%/EPINEPHRINE 1:200,000 20 ML PF ONE (00:47)
[2024-12-20] MEDS: SODIUM CHLORIDE 0.9% PF INJ 10 ML VIAL EPI STA (00:48)
[2024-12-20] MEDS ORDERED: PENICILLIN GK 3 MU in DEXTROSE 5% 100 ML IV PRN (01:05)
[2024-12-20] MEDS: IBUPROFEN 600 MG TAB PO PRN (06:43)
[2024-12-20] MEDS: DOCUSATE SODIUM 100 MG CAP PO SCH (07:34)
[2024-12-20] MEDS: FERROUS SULFATE 325 MG TAB PO SCH (07:34)
[2024-12-20] MEDS: PRENATAL VITAMIN 1 TAB PO SCH (07:34)
[2024-12-20] MEDS: ACETAMINOPHEN 325 MG TAB PO PRN (10:19)
[2024-12-20] MEDS: DIPHTHER/TETAN/PERTUS Vaccine (Tdap, Adol/Adult) 0.5mL IM ONE (19:06)
[2024-12-20] MEDS: MEASLES, MUMPS & RUBELLA VIRUS VACCINE (MMR) 0.5ML VIAL SQ ONE (19:06)
[2024-12-21 06:15] LABS: Hematocrit (blood only) 35.7 % (37.0-47.0); Hemoglobin 12.4 g/dl (12.0-16.0); Mean Corpuscular Hemoglobin 31.2 pg (25.0-34.0); Mean Corpuscular Volume 89.9 fL (80.0-100.0); Platelet Count 201 K/uL (130-400); RDW Standard Deviation 42.8 fL (36.4-46.3); Red Blood Count 3.97 M/uL (4.20-5.40); White Blood Count 18.15 K/ul (4.8-10.8)
[2024-12-21 07:59] VITALS: TEMP 97.9
--- NOTE | 2024-12-21 08:15 | Obstetrical Progress Note ---
Date of Service December 21, 2024 Assessment & Plan Admission and Anticipated Discharge Date Admission Date: December 19, 2024 Subjective abdomen soft and non tender no calf tenderness ambulating well vaginal bleeding scant hgb 12.4 Results & Data Vital Signs (Past 12 Hours) Vital Signs Temp Pulse Resp BP Pulse Ox O2 Del Method 12/21/24 07:51 36.6 C 81 18 119/81 99 Room Air 12/20/24 22:49 37 C 82 16 102/60 97 Room Air
[2024-12-21 08:26] VITALS: PULSE 94; RESP 19; O2SAT 98
[2024-12-21 08:41] VITALS: BP 119/81
== END 2024-12-21 11:21 | disposition home or self-care (01) | DRG 807 ==
LOC: OPB 21:38 → 4S1 21:40 → 4E2 12-20 03:28